=== PATIENT | male | born 1960 | race Asian ===

== ENCOUNTER 2018-09-01 09:12 | Emergency (ER) | payer OTHER ==
[~2018-09-01] VITALS: Ht 170.2 cm; Wt 76.1 kg
[2018-09-01 09:16] VITALS: Ht 170.2 cm; Wt 76.1 kg
[2018-09-01 11:00] VITALS: BP 148/102; PULSE 75; RESP 18
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
== END 2018-09-01 11:01 | disposition home or self-care (01) ==
LOC: E/R 09:12
DX: S13.4XXA Sprain of ligaments of cervical spine, initial encounter (principal); I10 Essential (primary) hypertension; V49.40XA Driver injured in collision with unspecified motor vehicles in traffic accident, initial encounter; Y92.410 Unspecified street and highway as the place of occurrence of the external cause
CPT/HCPCS: 72040; 99283